=== PATIENT | male | born 1990 | race Hispanic/Latino ===

== ENCOUNTER 2017-09-16 19:12 | Observation (INO) | payer OTHER ==
[2017-09-16] MEDS ORDERED: Lidocaine 5% Patch TD STA (19:53)
[2017-09-16] MEDS ORDERED: Lidocaine 5% Patch TD ONE (20:14)
--- NOTE | 2017-09-16 21:04 | ED PDOC ---
HPI: Back Time Seen by Provider: 09/16/17 19:22 Chief Complaint (Nursing): Back Pain Chief Complaint (Provider): Back Pain History Per: Patient History/Exam Limitations: no limitations Onset/Duration Of Symptoms: Days (x2 ) Current Symptoms Are (Timing): Still Present Quality Of Discomfort: "Pain" Additional Complaint(s): 26 year old male with a history of stress fracture in lumbar spine at 11 y/o presents to the ED for gradual onset back pain since Saturday evening. Patient states pain was mild and tolerable after he played golf and drove home from [place]. Today, at 2 pm the pain became more severe after walking up stairs in his house. He reports spasm type pain that causes his whole body to get stiff. Patient says he used hot packs, cold packs and ibuprofen with no relief. Pain worsens when he tries to get up and walk or puts any pressure on his lower extremities. He denies urinary or bowel incontinence or retention, numbness or weakness in leg, fever or any other medical complaints. PMD: in [place], [place] Past Medical History Reviewed: Historical Data, Nursing Documentation, Vital Signs Vital Signs: Last Vital Signs Temp 98.6 F 09/16/17 19:17 Pulse 60 09/16/17 19:17 Resp 18 09/16/17 19:17 BP 147/77 09/16/17 19:17 Pulse Ox 100 09/16/17 19:17 - Medical History PMH: Back Problems - Family History Family History: States: No Known Family Hx - Social History Alcohol: Social Drugs: Cannabis (rarely) - Home Medications Home Medications: Ambulatory Orders Medication Instructions Recorded Cyclobenzaprine [Flexeril] 5 mg PO TID PRN #20 tab 09/17/17 Ibuprofen [Motrin] 600 mg PO Q6 #30 tab 09/17/17 - Allergies Allergies/Adverse Reactions: Allergies Allergy/AdvReac Type Severity Reaction Status Date / Time No Known Allergies Allergy Verified 09/16/17 19:16 Review of Systems ROS Statement: Except As Marked, All Systems Reviewed And Found Negative Musculoskeletal: Positive for: Back Pain Physical Exam - Reviewed Nursing Documentation Reviewed: Yes Vital Signs Reviewed: Yes - Physical Exam Appears: Positive for: Uncomfortable, In Acute Distress Gastrointestinal/Abdominal: Positive for: Soft. Negative for: Tenderness, Mass , Guarding, Rebound Back: Positive for: Other (positive paraspinal tenderness to the lumbar area, negative bilateral straight leg raise, strength 5/5 bilateral lower extremities , ankle dorsiflexion ). Negative for: Vertebral Tenderness Neurologic/Psych: Positive for: Alert, Oriented (x3), Other (light touch intact , no saddle anesthesia). Negative for: Motor/Sensory Deficits - Laboratory Results Result Diagrams: 09/17/17 01:04 09/17/17 01:04 - ECG O2 Sat by Pulse Oximetry: 100 (RA) Pulse Ox Interpretation: Normal Medical Decision Making Medical Decision Making: Time: 19:53 Initial Impression: lower back pain Initial Plan: --Lidocaine 1 ea TD --Toradol 30 mg IM --Tylenol 975 mg PO --Valium 5 mg PO Time: 20:23 --LS Spine XR On reeval pt still in severe pain with minimal upright position. Morphine and Ct ordered. EXAM: CT Lumbar Spine Without Intravenous Contrast CLINICAL HISTORY: 26 years old, male; Pain; Other: Pain in l5; Additional info: Sharp sevre pain h/o fracture l5 TECHNIQUE: Axial computed tomography images of the lumbar spine without intravenous contrast. All CT scans at this facility use at least one of these dose optimization techniques: automated exposure control; mA and/or kV adjustment per patient size (includes targeted exams where dose is matched to clinical indication); or iterative reconstruction. COMPARISON: No relevant prior studies available. FINDINGS: Vertebrae: Bilateral L5 spondylolyses. No acute fracture. Discs/spinal canal/neural foramina: Degenerative disc bulge at L5-S1 causing no spinal canal stenosis but moderate bilateral neural foraminal stenoses. Soft tissues: Unremarkable. IMPRESSION: 1. Degenerative disc bulge at L5-S1 causing no spinal canal stenosis but moderate bilateral neural foraminal stenoses. 2. Bilateral L5 spondylolyses. Thank you for allowing us to participate in the care of your patient. Dictated and Authenticated by: Chay Dinh MD 09/16/2017 10:16 PM Eastern Time ([place] & [place]) Pt still in pain with movement. Repeat morphine and additional flexeril. 11:30p Pt unable to situp from bed without significant debilitating distress. Needs hospitalization for intractable pain. JANESSA Martini Medical Service Scribe Attestation: Documented by Laine Bautista, acting as a scribe for Cherelle Encarnacion MD Provider Scribe Attestation: All medical record entries made by the Scribe were at my direction and personally dictated by me. I have reviewed the chart and agree that the record accurately reflects my personal performance of the history, physical exam, medical decision making, and the department course for this patient. I have also personally directed, reviewed, and agree with the discharge instructions and disposition Disposition - Clinical Impression Clinical Impression: Back pain, Intractable pain - Disposition Disposition Time: 23:30 Condition: FAIR - Pt Status Changed To: Hospital Disposition Of: Observation - POA Present On Arrival: None
[2017-09-16] MEDS ORDERED: Sodium Chloride 0.9% 1,000 ML IV STA (21:21)
[2017-09-16] MEDS ORDERED: Morphine 4 MG/ML VIAL IVP STA (22:56)
[2017-09-16] MEDS ORDERED: Morphine 4 MG/ML VIAL ONE (23:00)
[2017-09-17] MEDS ORDERED: diaZEpam 10 mg/2 ml Inj IVP ONE (00:01)
[2017-09-17 01:07] LABS: BASO # 0.1 K/uL (0.0-0.2); BASO % 1.1 % (0.0-2.0); EOS # 0.1 K/uL (0.0-0.7); EOS % 1.6 % (0.0-4.0); HEMOGLOBIN 14.9 g/dL (12.0-18.0); LYMPH # 2.2 K/uL (1.0-4.3); LYMPH % 25.5 % (20.0-40.0); MEAN CELL VOLUME 90.6 fl (80.0-94.0); MEAN CORPUSCULAR HEMOGLOBIN 31.6 pg (27.0-31.0); MEAN CORPUSCULAR HGB CONC 34.9 g/dL (33.0-37.0); MEAN PLATELET VOLUME 9.3 fl (7.2-11.7); MONO # 0.7 K/uL (0.0-0.8); MONO % 8.2 % (0.0-10.0); NEUT # 5.4 K/uL (1.8-7.0); NEUT % 63.6 % (50.0-75.0); RBC 4.72 Mil/uL (4.40-5.90); RED CELL DISTRIBUTION WIDTH 13.2 % (11.5-14.5); WHITE BLOOD COUNT 8.5 K/uL (4.8-10.8)
[2017-09-17 01:16] LABS: ALB/GLOB RATIO 1.6 (1.0-2.1); ALBUMIN 4.2 g/dL (3.5-5.0); ALT/SGPT 30 U/L (21-72); AST/SGOT 24 U/L (17-59); BLOOD UREA NITROGEN 14 mg/dl (9-20); CALCIUM 9.2 mg/dL (8.4-10.2); GFR AFRICAN-AMERICAN > 60; GFR NON-AFRICAN AMERICAN > 60
[2017-09-17 08:00] VITALS: BP 160/90; RESP 20; TEMP 98.1
[2017-09-17] MEDS ORDERED: Enoxaparin 40 mg Syringe SC SCH (09:00)
--- NOTE | 2017-09-17 09:36 | CP.PCM.HP ---
History of Present Illness - History of Present Illness History of Present Illness: Patient seen and examined at bedside with Dr. Martini 26 yr old M presented to ED with complaint of worsening lumbar spine pain x 2 days. PMHx includes lumbar stress fracture 15 yrs ago while playing football. Patient reports he had not had a significant back problems or symptoms like these since then. Pain is worsened by movement and walking. Mildly alleviated by rest, not alleviated by ibuprofen or alternating hot packs and cold packs. Denies fever, chills, nausea, urinary or fecal incontinence, numbness or tingling or decreased sensation of lower extremities. Associated symptoms are stiffness all over his body as moving worsens the pain PMD: could not recall name (located in [place], [place]) PMHx: lumbar stress fracture 15 yrs ago while playing football SurgHx: denies FMHx: noncontributory SocHx: denies tobacco, Etoh socially, rarely uses cannabinoid Medications: ibuprofen PRN Allergies: NKDA ED course: vitals stable -CBC and CMP within normal limits -Lumbar spine CT: degenerative disc bulge L5-S1 with moderate b/l neural foraminal stenosis, b/l L5 spondyloses -Lumbar xray -ED treatment: Acetaminophen 975mg PO once, Cyclobenzaprine 10mg PO once, Diazepam 5mg IVP once, Diazepam 5mg PO once, Toradol 30mg IM once, Lidocaine 5% patch to area once, Morphine 2 mg IVP once, Morphine 4mg IV once, NS 1L bolus Present on Admission - Present on Admission Any Indicators Present on Admission: No History of DVT/PE: No History of Uncontrolled Diabetes: No Urinary Catheter: No Decubitus Ulcer Present: No History Surgical Site Infection Following: None Review of Systems - Constitutional Constitutional: absent: Chills - EENT Eyes: absent: Change in Vision Ears: absent: Dizziness Nose/Mouth/Throat: absent: Neck Pain - Cardiovascular Cardiovascular: absent: Chest Pain, Dyspnea - Respiratory Respiratory: absent: Cough, Dyspnea - Gastrointestinal Gastrointestinal: absent: Nausea - Genitourinary Genitourinary: absent: Difficulty Urinating, Dysuria, Urinary Incontinence - Musculoskeletal Musculoskeletal: Back Pain. absent: Numbness, Tingling - Integumentary Integumentary: absent: Bleeding Lesions - Neurological Neurological: absent: Confusion - Psychiatric Psychiatric: absent: Anxiety - Endocrine Endocrine: absent: Polydipsia, Polyphagia, Polyuria - Hematologic/Lymphatic Hematologic: absent: Easy Bleeding, Easy Bruising Past Patient History - Past Medical History & Family History Past Medical History?: Yes - Past Social History Smoking Status: Never Smoked - MUSCULOSKELETAL/RHEUMATOLOGICAL Hx Musculoskeletal Disorders: Yes Hx Back Pain: Yes Hx Falls: No Other/Comment: Hx stress fracture lower back age 11 - PSYCHIATRIC Hx Substance Use: No - SURGICAL HISTORY Hx Surgeries: No - ANESTHESIA Hx Anesthesia: No Meds Allergies/Adverse Reactions: Allergies Allergy/AdvReac Type Severity Reaction Status Date / Time No Known Allergies Allergy Verified 09/16/17 19:16 Physical Exam - Constitutional Appears: No Acute Distress - Head Exam Head Exam: ATRAUMATIC, NORMOCEPHALIC - Eye Exam Eye Exam: EOMI, PERRL - ENT Exam ENT Exam: Mucous Membranes Moist - Neck Exam Neck exam: Positive for: Full Rom. Negative for: Lymphadenopathy - Respiratory Exam Respiratory Exam: Clear to Auscultation Bilateral, NORMAL BREATHING PATTERN - Cardiovascular Exam Cardiovascular Exam: REGULAR RHYTHM, +S1, +S2 - GI/Abdominal Exam GI & Abdominal Exam: Normal Bowel Sounds, Soft. absent: Tenderness - Extremities Exam Extremities exam: Positive for: full ROM, normal capillary refill, pedal pulses present. Negative for: calf tenderness, joint swelling, pedal edema - Back Exam Back exam: tenderness (bilateral to palpation of lumbar paraspinal muscles) - Neurological Exam Neurological exam: Alert, CN II-XII Intact (grossly intact), Oriented x3 - Psychiatric Exam Psychiatric exam: Normal Affect, Normal Mood - Skin Skin Exam: Dry, Normal Color, Warm Results - Vital Signs Recent Vital Signs: Last Vital Signs Temp 98.1 F 09/17/17 07:59 Pulse 69 09/17/17 07:59 Resp 20 09/17/17 07:59 BP 160/90 H 09/17/17 07:59 Pulse Ox 99 09/17/17 07:59 - Labs Result Diagrams: 09/17/17 01:04 09/17/17 01:04 Labs: Laboratory Results - last 24 hr 09/17/17 09/17/17 01:04 01:04 WBC 8.5 RBC 4.72 Hgb 14.9 Hct 42.7 MCV 90.6 MCH 31.6 H MCHC 34.9 RDW 13.2 Plt Count 199 MPV 9.3 Neut % (Auto) 63.6 Lymph % (Auto) 25.5 [place] % (Auto) 8.2 Eos % (Auto) 1.6 Baso % (Auto) 1.1 Neut # (Auto) 5.4 Lymph # (Auto) 2.2 [place] # (Auto) 0.7 Eos # (Auto) 0.1 Baso # (Auto) 0.1 Sodium 142 Potassium 3.9 Chloride 107 Carbon Dioxide 24 Anion Gap 15 BUN 14 Creatinine 0.9 Est GFR ( Amer) > 60 Est GFR (Non-Af Amer) > 60 Random Glucose 67 L Calcium 9.2 Total Bilirubin 1.1 AST 24 ALT 30 Alkaline Phosphatase 51 Total Protein 6.9 Albumin 4.2 Globulin 2.7 Albumin/Globulin Ratio 1.6 Assessment & Plan - Assessment and Plan (Free Text) Assessment: 26 yr old M admitted for intractable back pain with CT findings of L5-S1 disc bulge with b/l neural foraminal stenosis. Plan: -admit to med/surg -muscle relaxant, pain management -Physical therapy -regular diet - Date & Time Date: 09/17/17 Time: 07:30
--- NOTE | 2017-09-17 10:41 | CT ---
PROCEDURE: CT Lumbar Spine without contrast HISTORY: Severe sharp pain h/o fracture L5 COMPARISON: None. TECHNIQUE: Contiguous helical/ transaxial computed tomography images were obtained of the lumbar spine without the use of intravenous contrast. Coronal and sagittal reformatted images were created and reviewed. Radiation dose: Total exam DLP = 1069.99 mGy-cm. This CT exam was performed using one or more of the following dose reduction techniques: Automated exposure control, adjustment of the mA and/or kV according to patient size, and/or use of iterative reconstruction technique. . FINDINGS: VERTEBRAE: No acute compression fractures nor retropulsed fragments. Chronic appearing bilateral pars interarticularis defects are seen at the L5-S1 level with less than Grade 1 spondylolisthesis. There is typical widening of the AP diameter of the canal with bilateral foraminal narrowing due to the aforementioned spondylolisthesis. Slightly uncovering of the posterior superior surface of the disc with mild of central and bilateral disc bulge that reaches the ventral surface of the thecal sac. DISCS/SPINAL CANAL/NEURAL FORAMINA: L1-2: Disc space height maintained. No disc herniation or significant disc bulge. The central canal and exit foramina adequate. L2-3: Disc space height maintained. No disc herniation or significant disc bulge. The central canal and exit foramina adequate.. L3-4: Disc space height maintained. No disc herniation or significant disc bulge. The central canal and exit foramina adequate.. L4-5: Disc space height maintained. No disc herniation or significant disc bulge. The central canal and exit foramina adequate.. L5-S1: As above. . PARASPINAL SOFT TISSUES: Unremarkable. OTHER FINDINGS: None. IMPRESSION: Chronic appearing bilateral pars interarticularis defects are seen at the L5-S1 level with less than Grade 1 spondylolisthesis. There is typical widening of the AP diameter of the canal with bilateral foraminal narrowing due to the aforementioned spondylolisthesis. Slightly uncovering of the posterior superior surface of the disc with mild of central and bilateral disc bulge that reaches the ventral surface of the thecal sac.
[2017-09-17 11:05] VITALS: PULSE 81; O2SAT 100
--- NOTE | 2017-09-17 11:07 | RAD ---
PROCEDURE: Radiographs of the Lumbar Spine. HISTORY: Low back pain COMPARISON: No prior. FINDINGS: BONES: No evidence of acute compression fracture nor retropulsed fragments. Slight (less than grade 1) anterior subluxation L5 over S1 due to bilateral pars interarticularis defects. DISC SPACES: Disc space heights are relatively maintained. OTHER FINDINGS: None. IMPRESSION: Less than Grade 1 spondylolisthesis due to bilateral spondylolysis L5-S1 levels.
== END 2017-09-17 15:50 | disposition home or self-care (01) ==
LOC: H.ER 19:12 → H.ERHOLD 23:52 → H.MEDSURG1 09-17 01:29
PROVIDERS: ADMIT Internal Medicine; ATTEND Internal Medicine
DX: M51.27 Other intervertebral disc displacement, lumbosacral region (principal); M48.07 Spinal stenosis, lumbosacral region
CPT/HCPCS: 72100; 72131; 80053; 85025; 96361; 96372; 96374; 96375; 96376; 97116; 97161; 97530; 99284; G0378; G8978; G8979; J1650; J1885; J2270; J7030